=== PATIENT | female | born 1995 | race Caucasian/White ===

== ENCOUNTER 2017-08-06 11:36 | Emergency (ER) | payer OTHER ==
[~2017-08-06] VITALS: Ht 157.5 cm; Wt 69.4 kg
[~2017-08-06 11:36] MED LIST: BENTYL 10 MG CA10 M1 PO; BENTYL10 MG PO; NORTRIPTYLINE H10 M1 PO; ONDANSETRON HCL4 M2 PO; PHENERGAN 25 MG25 M1 PO; REGLAN 10 MG TA10 MG PO; ZANTAC 150MG T150 M1 PO
[2017-08-06 12:10] LABS: URINE BILIRUBIN NEGATIVE (Negative); URINE BLOOD NEGATIVE (Negative); URINE CLARITY CLEAR; URINE COLOR YELLOW; URINE GLUCOSE-RANDOM NEGATIVE (Negative); URINE KETONES NEGATIVE (Negative); URINE LEUKOCYTES NEGATIVE (Negative); URINE NITRITE NEGATIVE (Negative); URINE PROTEIN NEGATIVE (Negative); URINE UROBILINOGEN 0.2 E.U./dl (0.2-1.0)
[2017-08-06 12:48] LABS: ABSOLUTE BASOPHILS 0.1 thou/uL (0.0-0.2); ABSOLUTE EOSINOPHILS 0.1 thou/uL (0.0-0.7); ABSOLUTE LYMPHOCYTES 2.3 thou/uL (0.8-5.3); ABSOLUTE MONOCYTES 0.6 thou/uL (0.0-1.2); ABSOLUTE NEUTROPHILS 4.2 thou/uL (1.6-8.1); EOSINOPHILS 0.8 %; HEMATOCRIT 41.9 % (37.0-47.0); HEMOGLOBIN 14.2 gm/dL (12.0-15.0); LYMPHOCYTES 31.5 %; MCH 31.2 pg (26.0-34.0); MCHC 33.9 g/dL (28.0-37.0); MONOCYTES 8.2 %; NUCLEATED RBCS 0 /100WBC; POLYS 58.5 %; RBC 4.56 mil/uL (4.20-5.00); RDW-CV 13.5 % (10.5-14.5); WBC 7.2 thou/uL (4.0-11.0)
[2017-08-06 12:58] LABS: CREATININE 0.8 mg/dL (0.6-1.3); POTASSIUM 3.9 mmol/L (3.5-5.1)
[2017-08-06 13:02] LABS: ALBUMIN 3.9 g/dL (3.4-5.0)
[2017-08-06] MEDS ORDERED: PHENERGAN 25 MG25 M1 PO (14:04)
[2017-08-06] MEDS ORDERED: TRAMADOL 50 MG50 MG PO (14:04)
[2017-08-06] MEDS ORDERED: MEDROLDOSEPACK PO (14:04)
[2017-08-06 14:24] VITALS: BP 101/63
[2017-08-06 14:41] LABS: PLATELET COUNT* 131 thou/uL (150-400); PLATELET ESTIMATE DECREASED
[2017-08-06 14:43] LABS: ANISOCYTOSIS Occasional; MPV 9.9 fl. (7.2-11.1)
== END 2017-08-06 14:25 | disposition home or self-care (01) ==
LOC: M.ERS 11:36
PROVIDERS: Physician Assistant
DX: R10.32 Left lower quadrant pain (principal); Z90.89 Acquired absence of other organs; Z88.1 Allergy status to other antibiotic agents; Z88.5 Allergy status to narcotic agent